=== PATIENT | male | born 1985 | race Caucasian/White ===

== ENCOUNTER 2023-11-11 22:25 | Emergency (ER) | payer OTHER, SELFPAY ==
--- NOTE | ~2023-11-11 | XR_ITS ---
EXAMINATION: XR ELBOW, RIGHT CLINICAL INFORMATION: Pain COMPARISON: None available. TECHNIQUE: AP, lateral, and oblique views of the right elbow. FINDINGS: Osseous alignment is anatomic. There is slight contour irregularity of the radial neck without discrete fracture line, which may be chronic. No appreciable joint effusion. Soft tissue swelling is present about the elbow, greatest dorsally. XR/XR elbow RT min 3V IMPRESSION: Slight contour irregularity of the radial neck without discrete fracture line, which may be chronic. Soft tissue swelling, greatest dorsally.
[2023-11-11 22:27] VITALS: BP 147/80; PULSE 100; RESP 17; TEMP 37.1; O2SAT 98; BMI 30.9
[2023-11-11 22:58] LABS: Basophils Percent Auto 0.2 % (0-2); Eosinophils Absolute Auto 0.1 X10*3/uL (0.0-0.4); Eosinophils Percent Auto 0.7 % (0-4); Hematocrit 35.5 % (42.0-52.0); Hemoglobin 12.2 g/dl (14.0-18.0); Imm Gran Abs Auto 0.11 X10*3/uL (0.00-0.03); Imm Gran Pct Auto 0.6 % (0.0-0.4); Lymphocytes Absolute Auto 4.5 X10*3/uL (1.2-4.9); Lymphocytes Percent Auto 26.2 % (20-40); MANUAL DIFF FLAG NO; Mean Corpuscular HGB Conc 34.4 g/dl (31.0-36.0); Mean Corpuscular Hemoglobin 28.2 pg (27.0-33.0); Mean Platelet Volume 9.2 fL (9.4-12.4); Monocytes Absolute Auto 1.5 X10*3/uL (0.1-1.2); Monocytes Percent Auto 8.7 % (2-11); Neutrophils Absolute Auto 10.8 x10*3/uL (2.0-8.3); Neutrophils Percent Auto 63.6 % (45-73); Platelet Count 375 X10*3/uL (160-400); Red Blood Count 4.33 X10*6/uL (4.60-5.80); Red Cell Distribution Width 13.3 % (11.0-16.0)
[2023-11-11 23:23] LABS: Alanine Aminotransferase 12 U/L (0-40); Albumin Level 4.6 g/dL (3.5-5.0); Alkaline Phosphatase 71 U/L (39-117); Anion Gap 19 (12-20); Aspartate Amino Transferase 13 U/L (5-37); Bilirubin Total 0.3 mg/dL (0.0-1.0); Blood Urea Nitrogen 28 mg/dL (9-16); Calcium 9.9 mg/dL (8.4-10.2); Carbon Dioxide 17 mmol/L (22-29); Chloride 106 mmol/L (96-108); Creatinine Clr Calc Pharmacy 72.5; Estimated Glomerular Filt Rate 54; Glucose Random 112 mg/dL (60-115); Potassium 3.4 mmol/L (3.3-5.1); Sodium 139 mmol/L (135-145); Total Protein 8.7 g/dL (6.5-8.0)
[2023-11-11 23:44] VITALS: BP 155/84; PULSE 95; RESP 18; TEMP 36.7; O2SAT 98
[2023-11-12 00:44] LABS: Uric Acid 13.7 mg/dL (3.4-7.0)
--- NOTE | 2023-11-12 02:12 | ED.EXTPRO ---
HPI - Extremity Problem General Chief complaint: Extremity Injury, Upper Stated complaint: elbow injury? Time Seen by Provider: 11/12/23 01:25 Source: patient Mode of arrival: ambulatory History of Present Illness HPI Narrative: This is a 38-year-old male who comes in with an atraumatic right elbow pain/swelling/redness for proximally 1 week and states that it has happened previously and he received antibiotics for. He denies any history of diabetes and hypertension. Related Data Previous Rx's Medication Instructions Recorded doxycycline monohydrate 100 mg 100 mg PO BID 5 days #10 caps 11/12/23 capsule Allergies Allergy/AdvReac Type Severity Reaction Status Date / Time amoxicillin [AMOXICILLIN] Allergy Unknown RASH, Verified 11/12/23 02:55 swelling penicillin G Allergy Unknown swelling Verified 11/12/23 02:55 Penicillins [PENICILLINS] Allergy Unknown RASH Verified 11/12/23 02:55 Review of Systems Review of Systems: Pertinent positives and negatives as stated in HPI [facility] Past Medical History Source: nursing notes reviewed Social History Social History Advance Directives: No Advance Directives Information Provided: No Physical Exam Vital Signs: Vital Signs: Last Vital Signs Temp 98.2 F 11/12/23 02:15 Pulse 92 11/12/23 02:15 Resp 18 11/12/23 02:15 BP 153/79 H 11/12/23 02:15 Pulse Ox 99 11/12/23 02:15 O2 Del Method Room Air 11/12/23 02:15 BMI result Body Mass Index 30.9 VITAL SIGNS: Reviewed. GENERAL: Well developed, well nourished, in no acute distress. HEAD: Normocephalic/atraumatic EYES: PERRLA, EOMI EARS: Ext canals without abnormality NOSE: Nares patent bilateral OROPHARYNX: no oral lesions noted, posterior pharynx clear NECK: Supple, no adenopathy LUNGS: Normal breath sounds. No adventitious sounds or accessory muscle use. SpO2<99> CARDIOVASCULAR: Regular rate and rhythm without noted murmurs ABDOMEN: Soft, non-tender, non-distended with bowel sounds. MUSCULOSKELETAL: No tenderness, deformities, or effusions noted on gross inspection. EXTREMITIES: No cyanosis, clubbing or edema. RIGHT UPPER EXTREMITY: There is noted erythema and induration to the right elbow and no other injury sites noted erythema does appear to be superficial SKIN: Inspection of the skin reveals no rashes NEUROLOGIC: Alert and oriented x 4. Strength and sensation to light touch were grossly intact x 4. Medications Administered Discontinued Medications Generic Name Dose Route Start Last Admin Trade Name Bravoq PRN Reason Stop Dose Admin Doxycycline Monohydrate 100 mg 11/12/23 02:24 11/12/23 02:56 Doxycycline Monohydrate 100 Mg Capsule PO 11/12/23 02:25 100 mg ONCE ONE Administration Medical Decision Making Medical Decision Making [facility] Narrative: 38-year-old male with history and clinical presentation, DDX: Bursitis, cellulitis I reviewed all investigations X-ray of the right elbow demonstrates contour irregularity of the radial neck which is suspected to be chronic in nature and given the atraumatic nature I do not suspect any fracture and the soft tissue is noted to be edematous but no reports of joint effusion further undergoing the suspicion of superficial cellulitis. Patient received antibiotics here in the emergency room and the leukocytosis was noted to be elevated but patient was afebrile and suspect that being started on a course of antibiotics will be beneficial and he was strongly encouraged to follow-up with his primary care doctor. Patient otherwise has an observed normocytic anemia without thrombocytopenia. Chemistry indices without any comparison so I reviewed patient's prior lab work that he had performed at [facility] in September which demonstrated that this is a CKD and not in TRE. My interpretation is that patient had superficial cellulitis of the right elbow of unclear etiology and will be discharged with a course of antibiotics. Differential Diagnosis Differential Diagnoses: The differential diagnosis associated with the presentation includes Please see the discussion above Admission/Observation Consideration of admission/observation: Escalation of care including admission/observation considered Please see the discussion above Lab Data [facility] Lab Attestation statement: I reviewed the patient's lab results. Please see the discussion above 11/11/23 22:50 11/11/23 22:50 Labs: Lab Results 11/11/23 Range/Units 22:50 WBC 17.0 H (4.8-10.8) X10*3/uL RBC 4.33 L (4.60-5.80) X10*6/uL Hgb 12.2 L (14.0-18.0) g/dl Hct 35.5 L (42.0-52.0) % MCV 82.0 (80.0-98.0) fL MCH 28.2 (27.0-33.0) pg MCHC 34.4 (31.0-36.0) g/dl RDW 13.3 (11.0-16.0) % Plt Count 375 (160-400) X10*3/uL MPV 9.2 L (9.4-12.4) fL Immature Gran % (Auto) 0.6 H (0.0-0.4) % Neut % (Auto) 63.6 (45-73) % Lymph % (Auto) 26.2 (20-40) % Walsh % (Auto) 8.7 (2-11) % Eos % (Auto) 0.7 (0-4) % Baso % (Auto) 0.2 (0-2) % Lymph # (Auto) 4.5 (1.2-4.9) X10*3/uL Walsh # (Auto) 1.5 H (0.1-1.2) X10*3/uL Eos # (Auto) 0.1 (0.0-0.4) X10*3/uL Baso # (Auto) 0.0 (0.0-0.2) X10*3/uL Abs Immat Gran (auto) 0.11 H (0.00-0.03) X10*3/uL Absolute Neuts (auto) 10.8 H (2.0-8.3) x10*3/uL Absolute Nucleated RBC 0.000 (0.0-0.012) X10*3/uL Nucleated RBC % (auto) 0.0 (0.0-0.2) /100WBC Sodium 139 (135-145) mmol/L Potassium 3.4 (3.3-5.1) mmol/L Chloride 106 (96-108) mmol/L Carbon Dioxide 17 L (22-29) mmol/L Anion Gap 19 (12-20) BUN 28 H (9-16) mg/dL Creatinine 1.46 H (0.5-1.4) mg/dL Estim Creat Clear Calc 72.5 Estimated GFR 54 Random Glucose 112 (60-115) mg/dL Uric Acid 13.7 H (3.4-7.0) mg/dL Calcium 9.9 (8.4-10.2) mg/dL Total Bilirubin 0.3 (0.0-1.0) mg/dL AST 13 (5-37) U/L ALT 12 (0-40) U/L Alkaline Phosphatase 71 (39-117) U/L Total Protein 8.7 H (6.5-8.0) g/dL Albumin 4.6 (3.5-5.0) g/dL Radiology Impression Discussion of test interpretation with radiology: I have reviewed the radiologist's reading. Radiologist Impression: Please see the discussion above Critical Care Time Critical Care Time Critical Care Time: Yes Total Critical Care Time: 30 Attestation: I personally attest to this time spent taking care of the patient. Discharge Plan Discharge Clinical Impression: Infection of right elbow Patient Disposition: Home, Self-Care Instructions: Swollen Joint (ED) Additional Instructions: 1. Complete the antibiotics as prescribed. 2. Please follow-up with primary care doctor 1st thing in the morning. Return to the ER for any worsening symptoms. Prescriptions: New doxycycline monohydrate 100 mg capsule 100 mg PO BID 5 Days Qty: 10 0RF Referrals: Mayra Macias MD [Primary Care Provider] - Interventions: ED Discharge Assessment Last Done: 11/12/23 03:47 Discharge Date/Time: 11/12/23 03:00
[2023-11-12 02:15] VITALS: BP 153/79; PULSE 92; RESP 18; TEMP 36.8; O2SAT 99
[2023-11-12] MEDS: Doxycycline Monohydrate 100 MG CAPSULE PO (02:56)
== END 2023-11-12 03:00 | disposition home or self-care (01) ==
PROVIDERS: Emergency Provider Student in an Organized Health Care Education/Training Program; PCP Internal Medicine
DX: L03.113 Cellulitis of right upper limb (principal); M25.521 Pain in right elbow; Z79.899 Other long term (current) drug therapy
CPT/HCPCS: 36415; 73080; 80053; 84550; 85025; 99283